=== PATIENT | female | born 1950 | race Caucasian/White ===

== ENCOUNTER → 2017-06-30 | Outpatient (CLI) | payer MEDICARE, BC ==
--- NOTE | 2017-06-30 09:12 | REPMRS ---
Patient History The patient states she had a clinical breast exam in 06/2017. Family history of breast cancer in sister at age 58 and breast cancer in paternal aunt at age 50 or over. Took estrogen for 1 year. Taking unspecified hormones for 2 years. Digital Woman Screen Mammo: June 30, 2017 - Exam #: [id number] Bilateral CC and MLO view(s) were taken. Technologist: Adela Scales, Technologist Prior study comparison: June 08, 2016, digital woman screen mammo performed at [facility]. June 06, 2015, digital woman screen mammo performed at [facility]. June 05, 2014, digital woman screen mammo performed at [facility]. FINDINGS: There are scattered fibroglandular densities. There has been no change in the appearance of the mammogram from the prior studies. There is a mild amount of scattered fibroglandular density which is fairly symmetric. There is no interval development of dominant mass, architectural distortion, or clustered microcalcification suggestive of malignancy. ASSESSMENT: BI-RADS/ACR category 1 mammogram. Negative. Recommendation Routine screening mammogram in 1 year (for women over age 40). This mammogram was interpreted with the aid of an FDA-approved computer-aided dectection system. Electronically Signed By: Nickolas Lares MD 06/30/17 0912
== END ==
LOC: M WHC 08:12
PROVIDERS: ATTEND Nurse Practitioner Women's Health
DX: Z01.419 Encounter for gynecological examination (general) (routine) without abnormal findings (principal); Z12.31 Encounter for screening mammogram for malignant neoplasm of breast; Z12.12 Encounter for screening for malignant neoplasm of rectum; Z80.3 Family history of malignant neoplasm of breast; Z92.23 Personal history of estrogen therapy; Z92.29 Personal history of other drug therapy
CPT/HCPCS: 82270; G0101; G0202

== ENCOUNTER → 2018-11-07 | Outpatient (CLI) | payer MEDICARE, BC ==
--- NOTE | 2018-11-07 11:43 | REPMRS ---
Patient History The patient states she had a clinical breast exam in 10/2018. Family history of breast cancer at age 50 or over in paternal aunt, breast cancer at age 58 in sister, endometrial cancer at age 50 or over in maternal grandmother. Took estrogen for 1 year. Taking unspecified hormones for 3 years 4 months. Digital Woman Screen Mammo: November 07, 2018 - Exam #: [id number] Bilateral CC and MLO view(s) were taken. Technologist: Adela Scales, Technologist Prior study comparison: June 30, 2017, digital woman screen mammo performed at [facility]. June 08, 2016, digital woman screen mammo performed at [facility]. June 06, 2015, digital woman screen mammo performed at [facility]. FINDINGS: There are scattered fibroglandular densities. There has been no change in the appearance of the mammogram from the prior studies. There is a mild amount of scattered fibroglandular density which is fairly symmetric. There is no interval development of dominant mass, architectural distortion, or clustered microcalcification suggestive of malignancy. 3-D tomosynthesis shows no additional findings. Assessment: BI-RADS/ACR category 1 mammogram. Negative Mammogram. Recommendation Routine screening mammogram of both breasts in 1 year (for women over age 40). This patient's Lifetime Breast Cancer RIsk is estimated at 12.3 %. This mammogram was interpreted with the aid of an FDA-approved computer-aided dectection system. Electronically Signed By: Nickolas Lares MD 11/07/18 7269
== END ==
LOC: M WHC 09:27
PROVIDERS: ATTEND Nurse Practitioner Women's Health
DX: Z01.419 Encounter for gynecological examination (general) (routine) without abnormal findings (principal); Z12.31 Encounter for screening mammogram for malignant neoplasm of breast; Z80.3 Family history of malignant neoplasm of breast; Z92.23 Personal history of estrogen therapy; Z92.29 Personal history of other drug therapy
CPT/HCPCS: 77063; 77067; G0101

== ENCOUNTER → 2020-01-11 | Outpatient (CLI) | payer MEDICARE, BC ==
--- NOTE | 2020-01-11 11:21 | REPMRS ---
Patient History The patient states she has not had a clinical breast exam in over a year. Family history of breast cancer at age 50 or over in paternal aunt, breast cancer at age 58 in sister, endometrial cancer at age 50 or over in maternal grandmother. Took estrogen for 1 year. Taking unspecified hormones for 3 years 4 months. 3D TOMOSYNTHESIS WAS PERFORMED. The [facility] lifetime risk for breast cancer is 11.7%. VOLBRIA ABDIEL B. Digital Woman Screen Mammo: January 11, 2020 - Exam #: [id number] Bilateral CC and MLO view(s) were taken. Technologist: Citlali Dietrich, Technologist Prior study comparison: November 07, 2018, bilateral digital woman screen mammo performed at [facility]. June 30, 2017, digital woman screen mammo performed at [facility]. FINDINGS: There are scattered fibroglandular densities. There has been no change in the appearance of the mammogram from the prior studies. There is a mild amount of residual fibroglandular tissue which is fairly symmetric. There is no interval development of dominant mass, architectural distortion, or clustered microcalcification suggestive of malignancy. Assessment: BI-RADS/ACR category 1 mammogram. Negative Mammogram. Recommendation Routine screening mammogram in 1 year (for women over age 40). This mammogram was interpreted with the aid of an FDA-approved computer-aided dectection system. Electronically Signed By: Theo Cyr MD 01/11/20 [id number]
--- NOTE | 2020-01-18 10:15 | DEXA ---
AP SPINE L1 - L4 0.914 -2.3 -0.6 LT FEMUR TOTAL 0.813 -1.5 -0.2 LT NECK 0.772 -1.9 -0.3 RT FEMUR TOTAL 0.808 -1.6 -0.2 RT NECK 0.779 -1.9 -0.2 TOTAL BODY TOTAL OTHER COMMENTS: There is low bone density of the spine and hips. The decreased density of the spine does represent significant change. The decreased density of the left hip does represent a significant change. The decreased density of the right hip does represent significant change. The density of the spine has decreased 12.4% since the initial exam on 02/27/2003. The decreased 3.3% since the most recent exam on 07/02/2016. The density of the left hip has decreased 11.7% since the initial exam on 02/27/2003. The density of the left hip has decreased 11.1% since the most recent exam on 07/02/2016. The density of the right hip has decreased 9.3% since the initial exam on 02/27/2003. The density of the right hip has decreased 6.5% since the most recent exam on 07/02/2016. FOLLOW-UP: Recommendation for the next bone density exam: 2 years. ADAM
== END ==
LOC: M WHC 09:41
PROVIDERS: ATTEND Nurse Practitioner Women's Health
DX: Z12.31 Encounter for screening mammogram for malignant neoplasm of breast (principal); Z78.0 Asymptomatic menopausal state; Z80.3 Family history of malignant neoplasm of breast; Z80.49 Family history of malignant neoplasm of other genital organs; M85.851 Other specified disorders of bone density and structure, right thigh; M85.852 Other specified disorders of bone density and structure, left thigh; M85.88 Other specified disorders of bone density and structure, other site

== ENCOUNTER → 2021-03-06 | Outpatient (CLI) | payer MEDICARE, BC ==
--- NOTE | 2021-03-06 09:34 | REPMRS ---
Patient History The patient states she had a clinical breast exam in January 2021. Family history of breast cancer at age 50 or over in paternal aunt, breast cancer at age 58 in sister, endometrial cancer at age 50 or over in maternal grandmother. Took estrogen for 1 year. Took unspecified hormones for 3 years 4 months. Tomosynthesis is performed. Volpara breast density is b. [facility] lifetime risk of breast cancer 10.4%. Covid vaccines 09/2020 right arm, 09/2020 right arm. Patient states no breast complaints today. Patient has signed MRS History Sheet. Digital Woman Screen Mammo: March 06, 2021 - Exam #: [id number] Bilateral CC and MLO view(s) were taken. Technologist: RT Hammad Prior study comparison: January 11, 2020, bilateral digital woman screen mammo performed at [facility]. November 07, 2018, bilateral digital woman screen mammo performed at [facility]. FINDINGS: There are scattered fibroglandular densities. There has been no change in the appearance of the mammogram from the prior studies. There is a mild amount of residual fibroglandular tissue which is fairly symmetric. There is no interval development of dominant mass, architectural distortion, or clustered microcalcification suggestive of malignancy. Assessment: BI-RADS/ACR category 1 mammogram. Negative Mammogram. Recommendation Routine screening mammogram in 1 year (for women over age 40). This mammogram was interpreted with the aid of an FDA-approved computer-aided dectection system. Electronically Signed By: Theo Cyr MD 03/06/21 0933
== END ==
LOC: M WHC 08:04
PROVIDERS: ATTEND Nurse Practitioner Women's Health
DX: Z01.419 Encounter for gynecological examination (general) (routine) without abnormal findings (principal); Z12.31 Encounter for screening mammogram for malignant neoplasm of breast; Z80.3 Family history of malignant neoplasm of breast; Z80.49 Family history of malignant neoplasm of other genital organs; Z92.23 Personal history of estrogen therapy; Z92.29 Personal history of other drug therapy
CPT/HCPCS: 77063; 77067; G0101

== ENCOUNTER → 2022-04-07 | Outpatient (CLI) | payer MEDICARE, BC | LOC: M WHC 14:19 | PROVIDERS: ATTEND Advanced Practice Midwife | DX: Z12.31 Encounter for screening mammogram for malignant neoplasm of breast (principal) ==

== ENCOUNTER → 2022-04-07 | Outpatient (CLI) | payer MEDICARE, BC | LOC: M WHC 13:49 | PROVIDERS: ATTEND Advanced Practice Midwife | DX: Z12.31 Encounter for screening mammogram for malignant neoplasm of breast (principal) ==

== ENCOUNTER → 2022-04-24 | Outpatient (CLI) | payer MEDICARE, BC | LOC: M WHC 10:49 | PROVIDERS: ATTEND Advanced Practice Midwife | DX: Z13.820 Encounter for screening for osteoporosis (principal); M85.89 Other specified disorders of bone density and structure, multiple sites ==

== ENCOUNTER → 2023-04-13 | Outpatient (CLI) | payer MEDICARE, BC | LOC: M WHC 08:26 | PROVIDERS: ATTEND Advanced Practice Midwife | DX: Z12.31 Encounter for screening mammogram for malignant neoplasm of breast (principal) ==

== ENCOUNTER → 2024-05-02 | Outpatient (CLI) | payer MEDICARE | LOC: M WHC 10:09 | PROVIDERS: ATTEND Advanced Practice Midwife | DX: Z01.419 Encounter for gynecological examination (general) (routine) without abnormal findings (principal); Z12.31 Encounter for screening mammogram for malignant neoplasm of breast; Z13.820 Encounter for screening for osteoporosis; M85.851 Other specified disorders of bone density and structure, right thigh; M85.852 Other specified disorders of bone density and structure, left thigh; M85.88 Other specified disorders of bone density and structure, other site; Z12.39 Encounter for other screening for malignant neoplasm of breast; R92.313 Mammographic fatty tissue density, bilateral breasts; Z79.51 Long term (current) use of inhaled steroids; Z79.890 Hormone replacement therapy; Z79.899 Other long term (current) drug therapy; Z86.16 Personal history of COVID-19; Z87.59 Personal history of other complications of pregnancy, childbirth and the puerperium; Z80.1 Family history of malignant neoplasm of trachea, bronchus and lung; Z80.3 Family history of malignant neoplasm of breast; Z90.710 Acquired absence of both cervix and uterus; Z90.79 Acquired absence of other genital organ(s) | CPT/HCPCS: 77063; 77067; 77080; G0463 ==

== ENCOUNTER → 2025-05-08 | Outpatient (CLI) | payer MEDICARE, BC | LOC: M WHC 09:07 | PROVIDERS: ATTEND Advanced Practice Midwife | DX: Z12.31 Encounter for screening mammogram for malignant neoplasm of breast (principal); R92.313 Mammographic fatty tissue density, bilateral breasts ==